=== PATIENT | male | born 1970 | race Hispanic/Latino ===

== ENCOUNTER → 2020-09-17 | Outpatient (CLI) | payer OTHER ==
[~2020-09-17] MED LIST: ACET1TAB12 PO; GLYB5TAB8 PO; METF-446 PO; METO100T14 PO; SULF1TAB42 PO
== END | disposition home or self-care (01) ==
LOC: OIH 10:06
PROVIDERS: ATTEND Internal Medicine Cardiovascular Disease
DX: I25.10 Atherosclerotic heart disease of native coronary artery without angina pectoris (principal); R06.00 Dyspnea, unspecified
CPT/HCPCS: 71046

== ENCOUNTER → 2020-09-19 | Outpatient (CLI) | payer OTHER | END | disposition home or self-care (01) | LOC: RAH 07:53 | PROVIDERS: ATTEND Internal Medicine Cardiovascular Disease | DX: R60.9 Edema, unspecified (principal) | CPT/HCPCS: 93925; 93970 ==

== ENCOUNTER 2020-10-09 15:46 | Inpatient (IN) | payer OTHER ==
[~2020-10-09] VITALS: Ht 177.8 cm; Wt 130.8 kg
[2020-10-09 17:06] LABS: BASOPHILS % (AUTO) 0.6 % (0.0-5.0); HEMATOCRIT 39.7 % (42-54); LYMPHOCYTES % (AUTO) 17.6 % (21.0-51.0); MEAN CORPUSCULAR HEMOGLOBIN 30.3 pg (27.0-33.0); MEAN CORPUSCULAR VOLUME 91.9 fL (79-99); MONOCYTES % (AUTO) 9.2 % (3.0-13.0); NEUTROPHILS % (AUTO) 68.4 % (40.0-77.0); PLATELET COUNT (AUTO) 217 K/uL (130-400); RED BLOOD CELL COUNT(AUTO) 4.32 MIL/uL (4.50-6.20); RED CELL DISTRIBUTION WIDTH 12.7 % (11.0-15.5); WHITE BLOOD COUNT (AUTO) 8.3 K/uL (4.8-10.8)
[2020-10-09 17:13] LABS: CREATININE 1.6 mg/dL (0.5-1.5); POTASSIUM 4.3 mmol/L (3.5-5.1)
[2020-10-09] MEDS ORDERED: ASPIRIN 325 MG TABLET ONE (17:21)
[2020-10-09 17:25] LABS: BILIRUBIN,TOTAL 0.8 mg/dL (0.2-1.0)
[2020-10-09 18:09] LABS: INR 1.02 (0.85-1.15); PARTIAL THROMBOPLASTIN TIME 31.4 SEC (26.3-35.5)
[2020-10-09] MEDS ORDERED: NITROGLYCERIN 1GM/1 INCH PACKET TD ONE (18:27)
[2020-10-09] MEDS ORDERED: ENOXAPARIN SODIUM 100 MG/1 ML SQ ONE (18:32)
[2020-10-09] MEDS ORDERED: ACETAMINOPHEN 325 MG TAB PO PRN ×2 (19:30)
[2020-10-09] MEDS ORDERED: DEXTROSE 50%-WATER 50 ML DISP.SYRIN IV PRN (19:30)
[2020-10-09] MEDS ORDERED: NITROGLYCERIN 0.4 MG SL TAB SL PRN (19:30)
[2020-10-09] MEDS ORDERED: GLUCAGON 1MG KIT 1 MG ML IM PRN (19:30)
[2020-10-09] MEDS ORDERED: DIPHENHYDRAMINE HCL 25 MG CAPSULE PO PRN (19:30)
[2020-10-09 19:48] LABS: HEMOGLOBIN A1C 8.3 % (4.0-6.0)
[2020-10-09 20:10] LABS: APPEARANCE,URINE Clear (CLEAR); BILIRUBIN,URINE Negative (NEGATIVE); COLOR,URINE Yellow (YELLOW); GLUCOSE, URINE (UA) Negative (NEGATIVE); KETONES,URINE 15 mg/dL (NEGATIVE); LEUKOCYTE ESTERASE ,URINE Negative (NEGATIVE); NITRATE,URINE Negative (NEGATIVE); OCCULT BLOOD,URINE Negative (NEGATIVE); PH,URINE 6.5 (5.0-8.0); PROTEIN,URINE POS 1+ mg/dL (NEGATIVE)
[2020-10-09 20:13] LABS: MYOGLOBIN 207 ng/mL (10-92); TROPONIN I < 0.04 ng/mL (0.00-0.06)
[2020-10-09 20:14] LABS: AMPHET/METH SCREEN,URINE NEGATIVE (NEGATIVE); BARBITURATE SCREEN, URINE NEGATIVE (NEGATIVE); BENZODIAZEPINES SCREEN,URINE NEGATIVE (NEGATIVE); CANNABINOID SCREEN,URINE NEGATIVE (NEGATIVE); COCAINE SCREEN,URINE NEGATIVE (NEGATIVE); OPIATE SCREEN,URINE NEGATIVE (NEGATIVE); PHENCYCLIDINE SCREEN,URINE NEGATIVE (NEGATIVE)
[2020-10-09 20:19] LABS: CREATINE KINASE, TOTAL 407 U/L (21-232)
[2020-10-09] MEDS: SODIUM CHLORIDE 0.9% 1000ML 1,000 ML IV SCH (20:30)
[2020-10-09 20:31] LABS: BACTERIA,URINE Rare /HPF (None Seen); RBC,URINE None Seen /HPF (0-1); SQUAMOUS EPITHELIAL CELL,UR None Seen /HPF (0-2); WBC,URINE 0-1 /HPF (0-1)
[2020-10-09] MEDS ORDERED: METOPROLOL TARTRATE 25 MG TAB PO SCH (21:00)
[2020-10-09] MEDS: FAMOTIDINE 20MG TAB 20 MG TAB PO SCH (21:00)
[2020-10-09] MEDS ORDERED: FAMOTIDINE 20MG TAB 20 MG TAB ONE (22:29)
[2020-10-09] MEDS ORDERED: ONDANSETRON HCL 4 MG/2 ML VIAL ONE (22:30)
[2020-10-10] VITALS (10 sets, daily range): BP systolic 123–167; BP diastolic 58–98
[2020-10-10] MEDS ORDERED: ONDANSETRON HCL 4 MG/2 ML VIAL ONE ×2 (04:28→10:40)
[2020-10-10 04:41] LABS: HEMATOCRIT 40.8 % (42-54); MEAN CORPUSCULAR HGB CONC 32.1 g/dL (32.0-36.0); MEAN CORPUSCULAR VOLUME 93.4 fL (79-99); PLATELET COUNT (AUTO) 203 K/uL (130-400); RED BLOOD CELL COUNT(AUTO) 4.37 MIL/uL (4.50-6.20); RED CELL DISTRIBUTION WIDTH 12.7 % (11.0-15.5); WHITE BLOOD COUNT (AUTO) 8.2 K/uL (4.8-10.8)
[2020-10-10 04:58] LABS: EOSINOPHILS % (MANUAL) 3 % (1-6); LYMPHOCYTES % (MANUAL) 20 % (22-44); MAN.DIFF COMMENT-IMPRESSION MANUAL DIFFERENTIAL; MONOCYTES % (MANUAL) 3 % (2-9); PLATELET MORPHOLOGY COMMENT ADEQUATE; SEGMENTED NEUTROPHILS % 74 % (40-70)
[2020-10-10 05:21] LABS: ALANINE AMINOTRANSFERASE 30 U/L (12-78); ALBUMIN 3.8 g/dL (3.5-5.0); ASPARTATE AMINOTRANSFERASE 25 U/L (10-37); BILIRUBIN,TOTAL 1.2 mg/dL (0.2-1.0); CARBON DIOXIDE 20 mmol/L (21-32); CHLORIDE 103 mmol/L (101-111); CHOLESTEROL 80 mg/dL (<200); CREATININE 1.4 mg/dL (0.5-1.5); GLOMERULAR FILTR. RATE CALC 57 mL/min (>60); GLUCOSE,RANDOM 112 mg/dL (70-105); HDL CHOLESTEROL 32 mg/dL (29-71); LDL DIRECT 35 mg/dL (0-99); MYOGLOBIN 352 ng/mL (10-92); POTASSIUM 4.1 mmol/L (3.5-5.1); SODIUM SERUM 135 mmol/L (136-145); TOTAL PROTEIN, SERUM 7.7 g/dL (6.0-8.3); TRIGLYCERIDES 91 mg/dL (30-200); TROPONIN I < 0.04 ng/mL (0.00-0.06); UREA NITROGEN, BLOOD 25 mg/dL (7-18)
[2020-10-10 05:23] LABS: CREATINE KINASE, TOTAL 519 U/L (21-232)
[2020-10-10] MEDS: SODIUM CHLORIDE 0.9% 1000ML 1,000 ML IV SCH ×2 (06:30→16:30)
[2020-10-10] MEDS: HYDROCHLOROTHIAZIDE 25 MG TABLET PO SCH (09:00)
[2020-10-10] MEDS: ENOXAPARIN SODIUM 30 MG/0.3 ML SQ SCH (09:00)
[2020-10-10] MEDS: FAMOTIDINE 20MG TAB 20 MG TAB PO SCH ×2 (09:00→21:40)
[2020-10-10] MEDS: CLONIDINE HCL 0.2 MG TABLET PO SCH ×2 (09:00→21:40)
[2020-10-10] MEDS: LABETALOL HCL 200 MG TABLET PO SCH ×2 (09:00→21:39)
[2020-10-10] MEDS: ASPIRIN 325 MG TABLET PO SCH (09:00)
[2020-10-10] MEDS ORDERED: ENOXAPARIN SODIUM 30 MG/0.3 ML SQ ONE (10:09)
[2020-10-10] MEDS ORDERED: ASPIRIN 325 MG TABLET ONE (10:10)
[2020-10-10] MEDS: INSULIN HUMULIN R 100 UNIT/ML 3ML SQ SCH ×3 (11:30→21:00)
[2020-10-10] MEDS ORDERED: LEFL20TA18 PO (11:32)
[2020-10-10] MEDS ORDERED: TRAM50TA4 PO (11:35)
[2020-10-10] MEDS ORDERED: ALLO100T PO (11:36)
[2020-10-10] MEDS ORDERED: LABE200T5 PO (11:37)
[2020-10-10] MEDS ORDERED: HYDR25TA PO (11:42)
[2020-10-10] MEDS ORDERED: CLON0.2T PO (11:46)
[2020-10-10] MEDS ORDERED: ONDA4SOL PO (11:48)
[2020-10-10] MEDS ORDERED: ROSU20TA31 PO (11:50)
[2020-10-10] MEDS ORDERED: MONT10TA26 PO (11:52)
[2020-10-10] MEDS ORDERED: IRBE300T18 PO (11:54)
[2020-10-10] MEDS ORDERED: GABA600T10 PO (11:56)
[2020-10-10] MEDS ORDERED: IPRA6S NASAL (11:59)
[2020-10-10] MEDS ORDERED: INSU100I21 SQ (12:01)
[2020-10-10] MEDS ORDERED: INSNOV IVP (12:02)
[2020-10-10 12:48] LABS: MYOGLOBIN 379 ng/mL (10-92); TROPONIN I < 0.04 ng/mL (0.00-0.06)
[2020-10-10 12:53] LABS: CREATINE KINASE, TOTAL 737 U/L (21-232)
--- NOTE | 2020-10-10 12:55 | NUR ---
CM NOTE/IA UNABLE TO MEET WITH PATIENT AT BEDSIDE. IA DONE BY KOFI BEJARANO. PER PATIENT, LIVES WITH SPOUSE AND DAUGHTER, HAS USE OF CPAP, NO PROVIDER OR HOME HEALTH AGENCY IN USE, AND FEELS SAFE TO RETURN HOME ONCE DISCHARGED FROM HOSPITAL. Addendum: 10/10/20 at 1257 by RERE HICKS RN CM Amended: Links added.
[2020-10-10] MEDS ORDERED: NICARDIPINE HCL 25 MG/10 ML ML IV ONE (13:52)
[2020-10-10] MEDS ORDERED: IOHEXOL 350 MG/ML 100ML INFUS..BTL IV ONE (13:52)
[2020-10-10] MEDS ORDERED: MIDAZOLAM HCL 1 MG/ML 2ML VIAL ONE (13:52)
[2020-10-10] MEDS ORDERED: NITROGLYCERIN 2 MG/VIAL VIAL IV ONE (13:52)
[2020-10-10] MEDS ORDERED: HEPARIN SODIUM 1000UNIT/ML 10ML VIAL ONE (13:52)
[2020-10-10] MEDS ORDERED: IOHEXOL-350 50ML VIAL IV ONE (13:52)
[2020-10-10] MEDS ORDERED: LIDOCAINE HCL 2% 20ML ONE (13:53)
[2020-10-10] MEDS ORDERED: FENTANYL CITRATE PF 50 MCG/1 ML 2ML VIAL ONE (13:53)
[2020-10-10] MEDS ORDERED: SODIUM CHLORIDE 0.9% 1000ML 1,000 ML IV SCH (15:15)
[2020-10-10] MEDS: ONDANSETRON HCL 4 MG/2 ML VIAL IV PRN (17:57)
[2020-10-10 18:42] LABS: MYOGLOBIN 314 ng/mL (10-92); TROPONIN I < 0.04 ng/mL (0.00-0.06)
[2020-10-10 18:48] LABS: CREATINE KINASE, TOTAL 705 U/L (21-232)
--- NOTE | 2020-10-10 23:15 | NUR ---
ELEVATED BP 164/86, HR 77. PAGED COMMUNITY EDUCATION COORDINATOR D/T NO PRN HTN MED AVAILABLE. SPOKE WITH ROSA M LAMBERT NP. CLONIDINE 0.1 MG PO ONE TIME ORDERED VIA TELEPHONE. READ BACK DONE. MED ORDERED IN [employer].
[2020-10-10] MEDS ORDERED: CLONIDINE HCL 0.1 MG TABLET ONE (23:24)
[2020-10-10] MEDS ORDERED: CLONIDINE HCL 0.1 MG TABLET PO ONE (23:30)
--- NOTE | 2020-10-10 23:54 | NUR ---
BP REASSESS 130/74, HR 80. PT ASLEEP WITH CPAP MACHINE ON. SEMI BISHOP POSITION. NO S/S OF DISTRESS NOTED AT THIS TIME.
[2020-10-11 01:17] LABS: MYOGLOBIN 254 ng/mL (10-92); TROPONIN I < 0.04 ng/mL (0.00-0.06)
[2020-10-11 02:01] LABS: CREATINE KINASE, TOTAL 568 U/L (21-232)
[2020-10-11] MEDS: SODIUM CHLORIDE 0.9% 1000ML 1,000 ML IV SCH (02:30)
[2020-10-11 04:24] VITALS: BP 131/64
[2020-10-11 05:32] LABS: CREATININE 1.4 mg/dL (0.5-1.5); POTASSIUM 4.5 mmol/L (3.5-5.1)
[2020-10-11] MEDS: INSULIN HUMULIN R 100 UNIT/ML 3ML SQ SCH ×4 (06:57→21:00)
[2020-10-11 08:00] VITALS: BP 141/80
[2020-10-11] MEDS: LABETALOL HCL 200 MG TABLET PO SCH ×2 (08:09→21:01)
[2020-10-11] MEDS: FAMOTIDINE 20MG TAB 20 MG TAB PO SCH ×2 (08:09→21:01)
[2020-10-11] MEDS: HYDROCHLOROTHIAZIDE 25 MG TABLET PO SCH (08:10)
[2020-10-11] MEDS: ASPIRIN 325 MG TABLET PO SCH (08:10)
[2020-10-11] MEDS: CLONIDINE HCL 0.2 MG TABLET PO SCH ×2 (08:10→21:00)
[2020-10-11] MEDS: ENOXAPARIN SODIUM 30 MG/0.3 ML SQ SCH (08:12)
[2020-10-11] MEDS: TRAMADOL HCL 50 MG TABLET PO PRN (10:35)
[2020-10-11 12:00] VITALS: BP 147/90
[2020-10-11] MEDS: GABAPENTIN 300 MG CAPSULE PO SCH ×2 (14:32→21:01)
[2020-10-11 16:00] VITALS: BP 132/75
--- NOTE | 2020-10-11 17:06 | NUR ---
DR. DOOLEY AND Tiny SMITH NP, IN ROOM SPEAKING WITH PT.
[2020-10-11 20:29] VITALS: BP 163/84
[2020-10-11 23:43] VITALS: BP 125/72
[2020-10-12 03:25] VITALS: BP 126/63
[2020-10-12] MEDS: ONDANSETRON HCL 4 MG/2 ML VIAL IV PRN (05:26)
[2020-10-12] MEDS ORDERED: LACTULOSE 20 GM/30 ML UDCUP PO PRN (06:00)
--- NOTE | 2020-10-12 06:00 | NUR ---
Pt. c/o constipation no bm x 3 days. Prune juice given with no results. Tylenol and antiemetic given for comfort. Notified Hospitalist irrigation installation specialist, awaiting orders for laxative.
[2020-10-12 06:20] LABS: HEMATOCRIT 39.8 % (42-54); MEAN CORPUSCULAR HEMOGLOBIN 29.6 pg (27.0-33.0); MEAN CORPUSCULAR HGB CONC 32.2 g/dL (32.0-36.0); MEAN CORPUSCULAR VOLUME 92.1 fL (79-99); RED BLOOD CELL COUNT(AUTO) 4.32 MIL/uL (4.50-6.20); RED CELL DISTRIBUTION WIDTH 12.7 % (11.0-15.5)
[2020-10-12 06:49] LABS: ALBUMIN 3.7 g/dL (3.5-5.0); BILIRUBIN,TOTAL 1.3 mg/dL (0.2-1.0); CREATININE 1.3 mg/dL (0.5-1.5); POTASSIUM 3.8 mmol/L (3.5-5.1); THYROID STIMULATING HORMONE 5.16 uIU/mL (0.36-3.74); TOTAL PROTEIN, SERUM 7.5 g/dL (6.0-8.3)
[2020-10-12] MEDS: INSULIN HUMULIN R 100 UNIT/ML 3ML SQ SCH ×2 (07:30→13:26)
[2020-10-12 08:18] VITALS: BP 147/80
[2020-10-12] MEDS: CLONIDINE HCL 0.2 MG TABLET PO SCH (08:49)
[2020-10-12] MEDS: HYDROCHLOROTHIAZIDE 25 MG TABLET PO SCH (08:49)
[2020-10-12] MEDS: FAMOTIDINE 20MG TAB 20 MG TAB PO SCH (08:50)
[2020-10-12] MEDS: GABAPENTIN 300 MG CAPSULE PO SCH ×2 (08:50→13:11)
[2020-10-12] MEDS: LABETALOL HCL 200 MG TABLET PO SCH (08:50)
[2020-10-12] MEDS: TRAMADOL HCL 50 MG TABLET PO PRN (09:43)
[2020-10-12] MEDS ORDERED: POLYETHYLENE GLYCOL 3350 17 GM POWD.PACK PO SCH (11:15)
[2020-10-12] MEDS ORDERED: SENNOSIDES 8.6 MG TABLET PO SCH (11:15)
[2020-10-12 11:45] VITALS: BP 151/70
[2020-10-12] MEDS ORDERED: LEFL20TA18 PO (13:21)
[2020-10-12 15:06] VITALS: BP 162/76
--- NOTE | 2020-10-12 17:05 | NUR ---
DISCHARGE discussed discharge instructions with pt and ,voices understanding pt aware medication changes new RX given to pt for increase labetalol to 400mg by mouth 2 times daily .
[2020-10-12] MEDS ORDERED: LABETALOL HCL 200 MG TABLET PO SCH (21:00)
== END 2020-10-12 17:40 | disposition home or self-care (01) | DRG 287 ==
LOC: EDH 15:46 → EDHIP 19:13 → 4CH 10-10 15:29
PROVIDERS: ADMIT Family Medicine; ATTEND Family Medicine
PROC: B2111ZZ Fluoroscopy of Multiple Coronary Arteries using Low Osmolar Contrast (ICD-10-PCS; principal; 2020-10-10)
PROC: B2151ZZ Fluoroscopy of Left Heart using Low Osmolar Contrast (ICD-10-PCS; 2020-10-10)
DX: R07.89 Other chest pain (principal); N17.9 Acute kidney failure, unspecified; Z68.41 Body mass index [BMI] 40.0-44.9, adult; I25.10 Atherosclerotic heart disease of native coronary artery without angina pectoris; M32.9 Systemic lupus erythematosus, unspecified; I11.9 Hypertensive heart disease without heart failure; E11.40 Type 2 diabetes mellitus with diabetic neuropathy, unspecified; G47.33 Obstructive sleep apnea (adult) (pediatric); Z20.828 Contact with and (suspected) exposure to other viral communicable diseases; E66.01 Morbid (severe) obesity due to excess calories; Z82.49 Family history of ischemic heart disease and other diseases of the circulatory system; Z82.0 Family history of epilepsy and other diseases of the nervous system; Z82.3 Family history of stroke; Z82.5 Family history of asthma and other chronic lower respiratory diseases; Z83.3 Family history of diabetes mellitus; Z88.8 Allergy status to other drugs, medicaments and biological substances; Z71.3 Dietary counseling and surveillance
CPT/HCPCS: 36415; 71045; 80048; 80053; 80061; 80305; 81001; 82550; 82948; 83036; 83735; 83874; 83880; 84443; 84484; 85025; 85027; 85610; 85730; 87426; 93005; 93458; 93975; 99156; C1769; G0378; J1644; J1650; J1815; J2250; J2405; J3010; J3490; Q9967; U0003

== ENCOUNTER → 2022-05-03 | Outpatient (CLI) | payer OTHER ==
[~2022-05-03] MED LIST changes: -ACET1TAB12 PO; +ALLO100T PO; +CLON0.2T PO; +GABA600T10 PO; +HYDR25TA PO; +INSNOV IVP; +IPRA6S NASAL; +LEFL20TA18 PO; -METF-446 PO; -METO100T14 PO; +MONT-39 PO; +ONDA4SOL PO; +ROSU20TA31 PO; -SULF1TAB42 PO; +TRAM50TA4 PO
== END | disposition home or self-care (01) ==
LOC: RAH 12:51
PROVIDERS: ATTEND Family Medicine
DX: I65.23 Occlusion and stenosis of bilateral carotid arteries (principal); R42 Dizziness and giddiness; R26.81 Unsteadiness on feet; R55 Syncope and collapse
CPT/HCPCS: 93880